=== PATIENT | female | born 1960 | race American Indian/Alaskan Native ===

== ENCOUNTER 2017-03-29 22:38 | Observation (INO) | payer SELFPAY ==
[~2017-03-29] VITALS: Ht 170.2 cm; Wt 103.1 kg
[2017-03-29] MEDS ORDERED: MORPHINE SULFATE 2 MG/ML DISP.SYRIN. IV/SQ PRN (23:00)
[2017-03-29 23:07] LABS: BASO % 0 % (0-3); EOS % 2 % (0-3); HEMATOCRIT 41.9 % (36.0-47.0); HEMOGLOBIN 14.4 g/dL (12.0-15.5); LYMPH # 3.8 x10^3/uL (1.0-4.8); LYMPH % 30 % (24-48); MEAN CORPUSCULAR HEMOGLOBIN 33 pg (25-35); MEAN CORPUSCULAR HGB CONC 34 g/dL (31-37); MEAN CORPUSCULAR VOLUME 95 fL (79-100); MONO % 8 % (0-9); NEUT % 60 % (31-73); PLATELET COUNT 299 x10^3/uL (140-400); RED BLOOD COUNT 4.43 x10^6/uL (3.50-5.40); WHITE BLOOD COUNT 12.9 x10^3/uL (4.0-11.0)
--- NOTE | 2017-03-29 23:09 | PHYS DOC ---
Past Medical History Past Medical History: Diabetes-Type II, High Cholesterol, Hypertension Past Medical History Ventral Hernia Past Surgical History: Hysterectomy, Other Additional Past Surgical Histo: rectal and bladder correction Smoking: Cigarettes Alcohol Use: None Drug Use: None Adult General Chief Complaint Chief Complaint: CHEST PAIN HPI HPI Patient is a 56 year old female who presents with chest pain and L shoulder scapular pain. Hx of "years' of pain L shoulder / scapula but over past 3 weeks worse with increase in episodes, change in pain to feeling of "someone sitting on chest" and worse with exertion. Current pain now 5/10 and became worse on way to ER. Associated with Nausea and diaphoresis and shortness of air. Pt denies abdominal pain Review of Systems Review of Systems Constitutional: Denies fever or chills Eyes: Denies change in visual acuity, redness, or eye pain HENT: Denies nasal congestion or sore throat Respiratory: Denies cough but does complain of shortness of air Cardiovascular: substernal chest pressure, dyspnea on excertion GI: Denies abdominal pain, nausea, vomiting, bloody stools or diarrhea : Denies dysuria or hematuria Musculoskeletal:some scapular and L shoulder pain Neurologic: Denies headache, focal weakness or sensory changes Endocrine: Denies polyuria or polydipsia Current Medications Current Medications Current Medications Medications (Trade) Dose Ordered Sig/Maurilio Start Time Stop Time Status Last Admin Dose Admin Info (Do NOT chart on this entry -- for MONITORING) 1 each PRN DAILY PRN 03/30/17 01:15 04/01/17 01:14 Morphine Sulfate 2 mg PRN Q15MIN PRN 03/29/17 23:00 03/30/17 11:10 DC 03/29/17 23:08 2 MG Ondansetron HCl (Zofran) 4 mg 1X ONCE 03/29/17 23:30 03/29/17 23:31 DC 03/29/17 23:08 4 MG Sodium Chloride 1,000 ml @ 1,000 mls/hr Q1H 03/29/17 23:30 03/30/17 00:29 DC 03/29/17 23:08 1,000 MLS/HR Allergies Allergies Allergies Coded Allergies Type Severity Reaction Last Updated Verified No Known Drug Allergies 12/30/13 No Physical Exam Physical Exam Constitutional: Well developed, well nourished, no acute distress, non-toxic appearance. HENT: Normocephalic, atraumatic, bilateral external ears normal, oropharynx moist, no oral exudates, nose normal. ] Eyes: PERRLA, EOMI, conjunctiva normal, no discharge. Neck: Normal range of motion, no tenderness, supple, no stridor., no JVD Cardiovascular:Heart rate regular rhythm, no murmur Lungs & Thorax: Bilateral breath sounds clear to auscultation ,no tenderness to palpation Abdomen: Bowel sounds normal, soft, mild epigastric tenderness to palpation, no masses, no pulsatile masses. Skin: Warm, dry, no erythema Back: No tenderness, no CVA tenderness. Extremities: No tenderness, no cyanosis, no clubbing, ROM intact, no edema. Neurologic: Alert and oriented X 3, normal motor function, normal sensory function, no focal deficits noted. Psychologic: Affect normal, judgement normal, mood normal BACK-- atraumatic, minimal tender over thorasic paraspinal area and L scapular area L shoulder no swelling, mild tender to palpation, neurovascular intact Current Patient Data Vital Signs Vital Signs Date Time Temp Pulse Resp B/P (MAP) Pulse Ox O2 Delivery O2 Flow Rate FiO2 03/30/17 00:45 68 25 101/55 (70) 94 Room Air 03/29/17 22:45 98.7 98.7 Lab Values Laboratory Tests Test 03/29/17 22:45 03/29/17 23:04 White Blood Count 12.9 x10^3/uL (4.0-11.0) H Red Blood Count 4.43 x10^6/uL (3.50-5.40) Hemoglobin 14.4 g/dL (12.0-15.5) Hematocrit 41.9 % (36.0-47.0) Mean Corpuscular Volume 95 fL (79-100) Mean Corpuscular Hemoglobin 33 pg (25-35) Mean Corpuscular Hemoglobin Concent 34 g/dL (31-37) Red Cell Distribution Width 13.0 % (11.5-14.5) Platelet Count 299 x10^3/uL (140-400) Neutrophils (%) (Auto) 60 % (31-73) Lymphocytes (%) (Auto) 30 % (24-48) Monocytes (%) (Auto) 8 % (0-9) Eosinophils (%) (Auto) 2 % (0-3) Basophils (%) (Auto) 0 % (0-3) Neutrophils # (Auto) 7.8 x10^3uL (1.8-7.7) H Lymphocytes # (Auto) 3.8 x10^3/uL (1.0-4.8) Monocytes # (Auto) 1.0 x10^3/uL (0.0-1.1) Eosinophils # (Auto) 0.3 x10^3/uL (0.0-0.7) Basophils # (Auto) 0.0 x10^3/uL (0.0-0.2) Prothrombin Time 13.4 SEC (11.7-14.0) Prothrombin Time INR 1.1 (0.8-1.1) D-Dimer (Avril) 0.48 ug/mlFEU (0.00-0.50) Sodium Level 143 mmol/L (136-145) Potassium Level 3.4 mmol/L (3.5-5.1) L Chloride Level 105 mmol/L (98-107) Carbon Dioxide Level 25 mmol/L (21-32) Anion Gap 13 (6-14) Blood Urea Nitrogen 16 mg/dL (7-20) Creatinine 0.9 mg/dL (0.6-1.0) Estimated GFR (Cockcroft-Gault) 64.5 Glucose Level 165 mg/dL (70-99) H Calcium Level 9.3 mg/dL (8.5-10.1) Magnesium Level 2.1 mg/dL (1.8-2.4) Total Bilirubin 0.3 mg/dL (0.2-1.0) Direct Bilirubin < 0.1 mg/dL (0.0-0.2) Aspartate Amino Transferase (AST) 21 U/L (15-37) Alanine Aminotransferase (ALT) 28 U/L (14-59) Alkaline Phosphatase 99 U/L (46-116) Creatine Kinase 280 U/L (26-192) H Creatine Kinase MB (Mass) 2.9 ng/mL (0.0-3.6) Creatine Kinase MB Relative Index 1.0 % (0-4) Troponin I Quantitative < 0.017 ng/mL (0.000-0.055) CH-Aja-J-Type Natriuretic Peptide 87 pg/mL (0-124) Total Protein 8.0 g/dL (6.4-8.2) Albumin 4.1 g/dL (3.4-5.0) Lipase 88 U/L (73-393) Urine Collection Type Unknown Urine Color Christa Urine Clarity Cloudy Urine pH 5.5 Urine Specific [place] >=1.030 Urine Protein 30 mg/dL (NEG-TRACE) Urine Glucose (UA) Negative mg/dL (NEG) Urine Ketones (Stick) Trace mg/dL (NEG) Urine Blood Negative (NEG) Urine Nitrite Negative (NEG) Urine Bilirubin Small (NEG) Urine Urobilinogen Dipstick 1.0 mg/dL (0.2 mg/dL) Urine Leukocyte Esterase Small (NEG) Urine RBC Occ /HPF (0-2) Urine WBC 1-4 /HPF (0-4) Urine Squamous Epithelial Cells Mod /LPF Urine Bacteria Mod /HPF (0-FEW) Urine Hyaline Casts Few /HPF Urine Mucus Mod /LPF Laboratory Tests 03/29/17 22:45 Laboratory Tests 03/29/17 22:45 EKG EKG EKG-Sinus rhythm with nonspecific QRS abnormalities in anteriolateral leads, no STEMI[] Interpretation Time: 2244 Radiology/Procedures Radiology/Procedures PATIENT: DEAN HERNANDEZ ACCOUNT: [id number] : 1960 LOCATION: [facility]TH AGE: 56 SEX: F EXAM STATUS: ADM IN ORD. PHYSICIAN: CHRISTINA ROSAS MD REASON: chest pain PROCEDURE: PORTABLE CHEST 1V Indication chest pain. A single view of the chest was obtained and is compared to an examination 12/30/2013. The heart and pulmonary vessels appear normal. The lungs are clear. There has not been a significant change relative to the previous exam. IMPRESSION: No acute or focal process is seen in the chest DICTATED and SIGNED BY: SHIRAZ URIARTE MD DATE: 03/30/17 0803 CC: CHRISTINA ROSAS MD; UNKNOWN PCP NAME; JASON WESLEY MD ~ PATIENT: DEAN HERNANDEZ ACCOUNT: [id number] : 1960 LOCATION: 2 SOUTH AGE: 56 SEX: F EXAM STATUS: ADM IN ORD. PHYSICIAN: CHRISTINA ROSAS MD REASON: chest/back pain r/o dissection/PE PROCEDURE: CT ANGIOGRAPHY CHEST RS Compliance Statement: One or more of the following individualized dose reduction techniques were utilized for this examination: 1. Automated exposure control 2. Adjustment of the mA and/or kV according to patient size 3. Use of iterative reconstruction technique CT CHEST WITH CONTRAST, PULMONARY ANGIOGRAM History: chest pain, back pain x 3 years...soa; Comparison: None. Technique: Helical CT of the chest was performed after the administration of 75 cc Omnipaque 300 intravenous contrast according to PE protocol. Axial and coronal reconstructions were obtained. 3-D MIP images were constructed to better evaluate the pulmonary arteries. Findings: Pulmonary arteries are adequately opacified. There is no evidence of pulmonary embolism. No thoracic aortic dissection. There is a large calcification at the origin of the right subclavian artery. Right vertebral artery is not definitely identified. There is no adenopathy in the chest. There is three-vessel coronary artery disease. Cardiac size normal, no pericardial effusion. There is no pleural effusion. Central airways are patent. Moderate bilateral dependent atelectasis. Small right Bochdalek hernia. Fatty infiltration of the liver. Atherosclerotic abdominal aorta, ectasia diameter up to 2.6 cm. Abdominal aorta is incompletely imaged. No compression fracture in the thoracic spine. IMPRESSION: 1. There is no CT evidence of pulmonary embolus. 2. Moderate bilateral dependent atelectasis. 3. Fatty infiltration of the liver. Electronically signed by: Sosa Karimi MD (03/30/2017 1:49 AM) [facility] DICTATED and SIGNED BY: SOSA KARIMI MD DATE: 03/30/17 0142 CC: CHRISTINA ROSAS MD; UNKNOWN PCP NAME; JASON WESLEY MD ~ [] Impressions: Impression----Chest pain with cardiac risk factors and mod/high suspicion of ACS Plan--admit Discussed with Dr. Wesley who accepted pt for admission Course & Med Decision Making Course & Med Decision Making Pertinent Labs and Imaging studies reviewed. (See chart for details) [] Dragon Disclaimer Dragon Disclaimer This electronic medical record was generated, in whole or in part, using a voice recognition dictation system. Departure Departure Disposition: 09 ADMITTED INPATIENT Admitting Physician: Brianna Wesley Condition: STABLE Referrals: NON,STAFF (PCP) Scripts Simvastatin (SIMVASTATIN) 40 Mg Tablet 40 MG PO QHS for 30 Days, #30 TAB Prov: DAMIEN BENEDICT MD 03/30/17 Aspirin (ASPIR 81) 81 Mg Tablet.dr 81 MG PO DAILY for 30 Days, #30 TAB Prov: DAMIEN BENEDICT MD 03/30/17 CHRISTINA ROSAS MD Mar 29, 2017 23:09
[2017-03-29 23:14] LABS: BILIRUBIN,URINE SMALL (NEG); GLUCOSE,URINE NEGATIVE (NEG); NITRITE,URINE NEGATIVE (NEG); PH,URINE 5.5; PROTEIN,URINE 30 mg/dL (NEG-TRACE)
[2017-03-29 23:16] LABS: INR 1.1 (0.8-1.1); PROTHROMBIN TIME PATIENT 13.4 SEC (11.7-14.0)
[2017-03-29 23:18] LABS: BACTERIA,URINE MOD /HPF (0-FEW); RBC,URINE OCC /HPF (0-2); SQUAMOUS EPITHELIAL CELL,UR MOD /LPF
[2017-03-29 23:18] LABS: ANION GAP 13 (6-14); BLOOD UREA NITROGEN 16 mg/dL (7-20); CALCIUM 9.3 mg/dL (8.5-10.1); CARBON DIOXIDE 25 mmol/L (21-32); CHLORIDE 105 mmol/L (98-107); CREATININE 0.9 mg/dL (0.6-1.0); GFR 64.5; GLUCOSE 165 mg/dL (70-99); POTASSIUM 3.4 mmol/L (3.5-5.1); SODIUM 143 mmol/L (136-145)
[2017-03-29 23:24] LABS: ALBUMIN 4.1 g/dL (3.4-5.0); ALK PHOS 99 U/L (46-116); ALT (SGPT) 28 U/L (14-59); AST (SGOT) 21 U/L (15-37); DIRECT BILIRUBIN < 0.1 mg/dL (0.0-0.2); MAGNESIUM 2.1 mg/dL (1.8-2.4); TOTAL BILIRUBIN 0.3 mg/dL (0.2-1.0)
[2017-03-29] MEDS ORDERED: ONDANSETRON PF 4 MG/2 ML VIAL. IV ONE (23:30)
[2017-03-29] MEDS ORDERED: IV NORMAL SALINE 1000ML BAG 1,000 ML IV SCH (23:30)
[2017-03-29 23:31] LABS: CKMB MASS 2.9 ng/mL (0.0-3.6)
[2017-03-30] MEDS ORDERED: CONTRAST GIVEN MC PRN (01:15)
[2017-03-30] MEDS ORDERED: IOHEXOL 300 MG/ML 75 ML VIAL IV ONE (01:30)
[2017-03-30] MEDS ORDERED: ACETAMINOPHEN 325 MG TABLET. PO PRN ×2 (01:30→09:45)
[2017-03-30] MEDS ORDERED: ONDANSETRON PF 4 MG/2 ML VIAL. IV PRN ×2 (01:30→09:45)
--- NOTE | 2017-03-30 01:53 | RAD ---
PQRS Compliance Statement: One or more of the following individualized dose reduction techniques were utilized for this examination: 1. Automated exposure control 2. Adjustment of the mA and/or kV according to patient size 3. Use of iterative reconstruction technique CT CHEST WITH CONTRAST, PULMONARY ANGIOGRAM History: chest pain, back pain x 3 years...soa; Comparison: None. Technique: Helical CT of the chest was performed after the administration of 75 cc Omnipaque 300 intravenous contrast according to PE protocol. Axial and coronal reconstructions were obtained. 3-D MIP images were constructed to better evaluate the pulmonary arteries. Findings: Pulmonary arteries are adequately opacified. There is no evidence of pulmonary embolism. No thoracic aortic dissection. There is a large calcification at the origin of the right subclavian artery. Right vertebral artery is not definitely identified. There is no adenopathy in the chest. There is three-vessel coronary artery disease. Cardiac size normal, no pericardial effusion. There is no pleural effusion. Central airways are patent. Moderate bilateral dependent atelectasis. Small right Bochdalek hernia. Fatty infiltration of the liver. Atherosclerotic abdominal aorta, ectasia diameter up to 2.6 cm. Abdominal aorta is incompletely imaged. No compression fracture in the thoracic spine. IMPRESSION: 1. There is no CT evidence of pulmonary embolus. 2. Moderate bilateral dependent atelectasis. 3. Fatty infiltration of the liver. Electronically signed by: Tristian Karimi MD (03/30/2017 1:49 AM) [facility]
[2017-03-30 02:15] VITALS: BP 121/88
[2017-03-30] MEDS ORDERED: FLUO40CA9 PO (03:57)
[2017-03-30] MEDS ORDERED: NAPR375T3 PO (03:57)
[2017-03-30] MEDS ORDERED: CYCL10TA2 PO (03:57)
--- NOTE | 2017-03-30 06:58 | EKG ---
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
[2017-03-30 07:00] VITALS: BP 130/84
--- NOTE | 2017-03-30 08:07 | RAD ---
Indication chest pain. A single view of the chest was obtained and is compared to an examination 12/30/2013. The heart and pulmonary vessels appear normal. The lungs are clear. There has not been a significant change relative to the previous exam. IMPRESSION: No acute or focal process is seen in the chest
--- NOTE | 2017-03-30 09:15 | PDOC2 ---
[employer]Z [employer] 03/30/17 0915: CARDIAC CONSULT DATE OF CONSULT Date of Consult DATE: 03/30/17 TIME: 09:12 REASON FOR CONSULT Reason for Consult: Chest pain REFERRING PHYSICIAN Referring Physician: Pantera SOURCE Source: Chart review, Patient HISTORY OF PRESENT ILLNESS HISTORY OF PRESENT ILLNESS This is a pleasant 56 yo female admitted for complains of chest pain. Reports of no recent falls, injury, or past VTE, CAD. Last night while at rest she started having cramp to her left arm that went to her shoulder then to her left chest then to her her right chest. This then transition to some mid chest heaviness. Denies any associated BARROSO, nausea, diaphoresis, palpitations, or dizziness. Her mid chest discomfort is reproducible with palpation as well as left shoulder ROM. She does have anxiety issues but she has not been taking her prozac. She sees a PCP at [facility] and was prescribed metformin and 1 BP med and cholesterol med as well but has stopped taking these. And if she does take these she takes it intermittently. Denies any weakness or fatigue, no recent heavy lifting or instant strenuous activity. Denies any heartburn. PAST MEDICAL HISTORY Cardiovascular: HTN, Hyperlipidemia Pulmonary: No pertinent hx CENTRAL NERVOUS SYSTEM: Other (Concussion) GI: No pertinent hx Heme/Onc: No pertinent hx Hepatobiliary: No pertinent hx Psych: Anxiety, Depression Musculoskeletal: Osteoarthritis Rheumatologic: No pertinent hx Infectious disease: No pertinent hx ENT: No pertinent hx Renal/: UTI, Other (nephrolithiasis) Endocrine: Diabetes (2) Dermatology: No pertinent hx PAST SURGICAL HISTORY Past Surgical History: Hysterectomy, Other (rectal surgery) FAMILY HISTORY Family History: Other (son has coarctation of the aorta and had surgery at 8 yo ) SOCIAL HISTORY Smoke: <1 pack per day (>40 yrs) ALCOHOL: none Drugs: Marijuana Lives: with Family (son) CURRENT MEDICATIONS CURRENT MEDICATIONS Current Medications Medications (Trade) Dose Ordered Sig/Maurilio Route PRN Reason Start Time Stop Time Status Last Admin Dose Admin Morphine Sulfate 2 mg PRN Q15MIN PRN IV/SQ PAIN GREATER THAN 3/10 03/29/17 23:00 03/30/17 22:59 03/29/17 23:08 Sodium Chloride 1,000 ml @ 1,000 mls/hr Q1H IV 03/29/17 23:30 03/30/17 00:29 DC 03/29/17 23:08 Ondansetron HCl (Zofran) 4 mg 1X ONCE IV 03/29/17 23:30 03/29/17 23:31 DC 03/29/17 23:08 Iohexol (Omnipaque 300 Mg/ml) 75 ml 1X ONCE IV 03/30/17 01:30 03/30/17 01:31 DC 03/30/17 01:34 ALLERGIES ALLERGIES: Coded Allergies: No Known Drug Allergies (Unverified , 12/30/13) ROS Review of System 14 point ROS evaluated with pertinent positives noted per HPI PHYSICAL EXAM General: Alert, Oriented X3, Cooperative, No acute distress HEENT: Atraumatic, Mucous membr. moist/pink Lungs: Clear to auscultation, Normal air movement Heart: Regular rate (SR), Normal S1, Normal S2, Other (2/6 systolic murmur to LLS border) Abdomen: Soft, No tenderness Extremities: No cyanosis, No edema Skin: No breakdown, No significant lesion Neuro: Normal speech, Sensation intact Psych/Mental Status: Mental status NL, Mood NL MUSCULOSKELETAL: Osteoarthritic changes both hands VITALS VITALS Vital Signs Date Time Temp Pulse Resp B/P (MAP) Pulse Ox O2 Delivery O2 Flow Rate FiO2 03/30/17 08:10 Room Air 03/30/17 07:00 98.1 76 20 130/84 (99) 96 98.1 LABS Lab: Laboratory Tests Test 03/29/17 22:45 03/29/17 23:04 03/30/17 05:00 White Blood Count 12.9 x10^3/uL (4.0-11.0) Red Blood Count 4.43 x10^6/uL (3.50-5.40) Hemoglobin 14.4 g/dL (12.0-15.5) Hematocrit 41.9 % (36.0-47.0) Mean Corpuscular Volume 95 fL (79-100) Mean Corpuscular Hemoglobin 33 pg (25-35) Mean Corpuscular Hemoglobin Concent 34 g/dL (31-37) Red Cell Distribution Width 13.0 % (11.5-14.5) Platelet Count 299 x10^3/uL (140-400) Neutrophils (%) (Auto) 60 % (31-73) Lymphocytes (%) (Auto) 30 % (24-48) Monocytes (%) (Auto) 8 % (0-9) Eosinophils (%) (Auto) 2 % (0-3) Basophils (%) (Auto) 0 % (0-3) Neutrophils # (Auto) 7.8 x10^3uL (1.8-7.7) Lymphocytes # (Auto) 3.8 x10^3/uL (1.0-4.8) Monocytes # (Auto) 1.0 x10^3/uL (0.0-1.1) Eosinophils # (Auto) 0.3 x10^3/uL (0.0-0.7) Basophils # (Auto) 0.0 x10^3/uL (0.0-0.2) Prothrombin Time 13.4 SEC (11.7-14.0) Prothromb Time International Ratio 1.1 (0.8-1.1) D-Dimer (Avril) 0.48 ug/mlFEU (0.00-0.50) Sodium Level 143 mmol/L (136-145) Potassium Level 3.4 mmol/L (3.5-5.1) Chloride Level 105 mmol/L (98-107) Carbon Dioxide Level 25 mmol/L (21-32) Anion Gap 13 (6-14) Blood Urea Nitrogen 16 mg/dL (7-20) Creatinine 0.9 mg/dL (0.6-1.0) Estimated GFR (Cockcroft-Gault) 64.5 Glucose Level 165 mg/dL (70-99) Calcium Level 9.3 mg/dL (8.5-10.1) Magnesium Level 2.1 mg/dL (1.8-2.4) Total Bilirubin 0.3 mg/dL (0.2-1.0) Direct Bilirubin < 0.1 mg/dL (0.0-0.2) Aspartate Amino Transf (AST/SGOT) 21 U/L (15-37) Alanine Aminotransferase (ALT/SGPT) 28 U/L (14-59) Alkaline Phosphatase 99 U/L (46-116) Creatine Kinase 280 U/L (26-192) Creatine Kinase MB (Mass) 2.9 ng/mL (0.0-3.6) Creatine Kinase MB Relative Index 1.0 % (0-4) Troponin I Quantitative < 0.017 ng/mL (0.000-0.055) < 0.017 ng/mL (0.000-0.055) ME-Vks-P-Type Natriuretic Peptide 87 pg/mL (0-124) Total Protein 8.0 g/dL (6.4-8.2) Albumin 4.1 g/dL (3.4-5.0) Lipase 88 U/L (73-393) Urine Collection Type Unknown Urine Color Christa Urine Clarity Cloudy Urine pH 5.5 Urine Specific [place] >=1.030 Urine Protein 30 mg/dL (NEG-TRACE) Urine Glucose (UA) Negative mg/dL (NEG) Urine Ketones (Stick) Trace mg/dL (NEG) Urine Blood Negative (NEG) Urine Nitrite Negative (NEG) Urine Bilirubin Small (NEG) Urine Urobilinogen Dipstick 1.0 mg/dL (0.2 mg/dL) Urine Leukocyte Esterase Small (NEG) Urine RBC Occ /HPF (0-2) Urine WBC 1-4 /HPF (0-4) Urine Squamous Epithelial Cells Mod /LPF Urine Bacteria Mod /HPF (0-FEW) Urine Hyaline Casts Few /HPF Urine Mucus Mod /LPF ASSESSMENT/PLAN ASSESSMENT/PLAN 1. Atypical chest pain: doubt ACS. No further recurrence. Suspect MSK 2. HTN: controlled 3. DM2/HLP 4. Tobaccoism 5. Marijuana use 6. Noncompliance. has been started on metformin, BP med, and cholesterold med as an outpt but has stopped using as well as her prozac Recommendations 1. TTE today if unremarkable then may DC and follow up with [facility] clinic 2. Smoking and marijuana cessation and discussed treatment compliance 3. No antiHTN needed at this time. Defer to outpt PCP 4. Lipid panel and TSH. 5. Start on ECASA 81 mg for primary prevention Problems: JULIA YO MD 03/30/17 1632: CARDIAC CONSULT ALLERGIES ALLERGIES: Coded Allergies: No Known Drug Allergies (Unverified , 12/30/13) ASSESSMENT/PLAN ASSESSMENT/PLAN Patient seen and examined. Agree with [employer]ER STRAP's assessment and plan Chest pain with atypical features and most probably musculoskeletal. 2-D echo showed normal LV systolic function without any wall motion abnormalities. No further cardiac workup is indicated at this time. Thank you for your consultation. Problems: TAZ [employer] Mar 30, 2017 09:15 JULIA YO MD Mar 30, 2017 16:32
--- NOTE | 2017-03-30 09:38 | PDOC1 ---
History and Physical Date of Admission Date of Admission Date of service: 03/30/2017 Chief complaint: Chest pain History of present illness: A 56-year-old female patient with prior history of hypertension present to the ER with complaints of chest pain located across the left side of the chest for 1 day. Pain was worse with the shoulder movement especially anterior and posterior movements, patient had shoulder problems for nearly 5 years however yesterday she could not able to tolerate. given her comorbid conditions she was admitted to the hospital for ACS rule out. At the time of examination patient's pain has been controlled ,denies any nausea vomiting or sweating. She did have some risk factors such as smoking and the distant family history. Past Medical History Past Medical History PAST MEDICAL HISTORY Cardiovascular: HTN, Hyperlipidemia Pulmonary: No pertinent hx CENTRAL NERVOUS SYSTEM: Other (Concussion) GI: No pertinent hx Heme/Onc: No pertinent hx Hepatobiliary: No pertinent hx Psych: Anxiety, Depression Musculoskeletal: Osteoarthritis Rheumatologic: No pertinent hx Infectious disease: No pertinent hx ENT: No pertinent hx Renal/: UTI, Other (nephrolithiasis) Endocrine: Diabetes (2) Dermatology: No pertinent hx PAST SURGICAL HISTORY Past Surgical History: Hysterectomy, Other (rectal surgery) FAMILY HISTORY Family History: Other (son has coarctation of the aorta and had surgery at 8 yo ) SOCIAL HISTORY Smoke: <1 pack per day (>40 yrs) ALCOHOL: none Drugs: Marijuana Lives: with Family (son) Current Problem List Problem List Problems Medical Problems: (1) Chest pain Status: Acute Current Medications Current Medications Current Medications Medications (Trade) Dose Ordered Sig/Maurilio Start Time Stop Time Status Last Admin Dose Admin Acetaminophen (Tylenol) 650 mg PRN Q4HRS PRN 03/30/17 01:30 03/31/17 01:29 Info (Do NOT chart on this entry -- for MONITORING) 1 each PRN DAILY PRN 03/30/17 01:15 04/01/17 01:14 Iohexol (Omnipaque 300 Mg/ml) 75 ml 1X ONCE 03/30/17 01:30 03/30/17 01:31 DC 03/30/17 01:34 75 ML Morphine Sulfate 2 mg PRN Q15MIN PRN 03/29/17 23:00 03/30/17 22:59 03/29/17 23:08 2 MG Ondansetron HCl (Zofran) 4 mg PRN Q8HRS PRN 03/30/17 01:30 03/31/17 01:29 Sodium Chloride 1,000 ml @ 1,000 mls/hr Q1H 03/29/17 23:30 03/30/17 00:29 DC 03/29/17 23:08 1,000 MLS/HR Allergies Allergies Allergies Coded Allergies Type Severity Reaction Last Updated Verified No Known Drug Allergies 12/30/13 No ROS Review of System CONSTITUTIONAL: No fever or chills EYES: No recent changes SKIN: No rash or itching CARDIOVASCULAR: No chest pain, syncope, palpitations, or edema, left shoulder pain worse with rotation RESPIRATORY: No SOB or cough GASTROINTESTINAL: No nausea, vomiting or abdominal pain NEUROLOGICAL: No headaches or weakness ENDOCRINE: No cold or heat intolerance GENITOURINARY: No urgency or frequency of urination MUSCULOSKELETAL: No back pain or joint pain LYMPHATICS: No enlarged lymph nodes PSYCHIATRIC: No anxiety or depression Physical Exam Physical Exam GEN.: No apparent distress. Alert and oriented. HEENT: Head is normocephalic, atraumatic NECK: Supple. No JVD LUNGS: Clear to auscultation. Normal air flow HEART: RRR, S1, S2 present. Peripheral pulses intact ABDOMEN: Soft, nontender. Positive bowel sounds. EXTREMITIES: Left shoulder pain with tenderness across the chest worse with the anterior and posterior moments. NEUROLOGIC: Normal speech, normal tone PSYCHIATRIC: Normal affect, normal mood. SKIN: No ulcerations Vitals Vitals Vital Signs Date Time Temp Pulse Resp B/P (MAP) Pulse Ox O2 Delivery O2 Flow Rate FiO2 03/30/17 08:10 Room Air 03/30/17 07:00 98.1 76 20 130/84 (99) 96 98.1 Labs Labs Laboratory Tests Test 03/29/17 22:45 03/29/17 23:04 03/30/17 05:00 White Blood Count 12.9 x10^3/uL (4.0-11.0) Red Blood Count 4.43 x10^6/uL (3.50-5.40) Hemoglobin 14.4 g/dL (12.0-15.5) Hematocrit 41.9 % (36.0-47.0) Mean Corpuscular Volume 95 fL (79-100) Mean Corpuscular Hemoglobin 33 pg (25-35) Mean Corpuscular Hemoglobin Concent 34 g/dL (31-37) Red Cell Distribution Width 13.0 % (11.5-14.5) Platelet Count 299 x10^3/uL (140-400) Neutrophils (%) (Auto) 60 % (31-73) Lymphocytes (%) (Auto) 30 % (24-48) Monocytes (%) (Auto) 8 % (0-9) Eosinophils (%) (Auto) 2 % (0-3) Basophils (%) (Auto) 0 % (0-3) Neutrophils # (Auto) 7.8 x10^3uL (1.8-7.7) Lymphocytes # (Auto) 3.8 x10^3/uL (1.0-4.8) Monocytes # (Auto) 1.0 x10^3/uL (0.0-1.1) Eosinophils # (Auto) 0.3 x10^3/uL (0.0-0.7) Basophils # (Auto) 0.0 x10^3/uL (0.0-0.2) Prothrombin Time 13.4 SEC (11.7-14.0) Prothromb Time International Ratio 1.1 (0.8-1.1) D-Dimer (Avril) 0.48 ug/mlFEU (0.00-0.50) Sodium Level 143 mmol/L (136-145) Potassium Level 3.4 mmol/L (3.5-5.1) Chloride Level 105 mmol/L (98-107) Carbon Dioxide Level 25 mmol/L (21-32) Anion Gap 13 (6-14) Blood Urea Nitrogen 16 mg/dL (7-20) Creatinine 0.9 mg/dL (0.6-1.0) Estimated GFR (Cockcroft-Gault) 64.5 Glucose Level 165 mg/dL (70-99) Calcium Level 9.3 mg/dL (8.5-10.1) Magnesium Level 2.1 mg/dL (1.8-2.4) Total Bilirubin 0.3 mg/dL (0.2-1.0) Direct Bilirubin < 0.1 mg/dL (0.0-0.2) Aspartate Amino Transf (AST/SGOT) 21 U/L (15-37) Alanine Aminotransferase (ALT/SGPT) 28 U/L (14-59) Alkaline Phosphatase 99 U/L (46-116) Creatine Kinase 280 U/L (26-192) Creatine Kinase MB (Mass) 2.9 ng/mL (0.0-3.6) Creatine Kinase MB Relative Index 1.0 % (0-4) Troponin I Quantitative < 0.017 ng/mL (0.000-0.055) < 0.017 ng/mL (0.000-0.055) RE-Drg-G-Type Natriuretic Peptide 87 pg/mL (0-124) Total Protein 8.0 g/dL (6.4-8.2) Albumin 4.1 g/dL (3.4-5.0) Lipase 88 U/L (73-393) Urine Collection Type Unknown Urine Color Christa Urine Clarity Cloudy Urine pH 5.5 Urine Specific Eakly >=1.030 Urine Protein 30 mg/dL (NEG-TRACE) Urine Glucose (UA) Negative mg/dL (NEG) Urine Ketones (Stick) Trace mg/dL (NEG) Urine Blood Negative (NEG) Urine Nitrite Negative (NEG) Urine Bilirubin Small (NEG) Urine Urobilinogen Dipstick 1.0 mg/dL (0.2 mg/dL) Urine Leukocyte Esterase Small (NEG) Urine RBC Occ /HPF (0-2) Urine WBC 1-4 /HPF (0-4) Urine Squamous Epithelial Cells Mod /LPF Urine Bacteria Mod /HPF (0-FEW) Urine Hyaline Casts Few /HPF Urine Mucus Mod /LPF Laboratory Tests Test 03/29/17 22:45 03/29/17 23:04 03/30/17 05:00 White Blood Count 12.9 x10^3/uL (4.0-11.0) Red Blood Count 4.43 x10^6/uL (3.50-5.40) Hemoglobin 14.4 g/dL (12.0-15.5) Hematocrit 41.9 % (36.0-47.0) Mean Corpuscular Volume 95 fL (79-100) Mean Corpuscular Hemoglobin 33 pg (25-35) Mean Corpuscular Hemoglobin Concent 34 g/dL (31-37) Red Cell Distribution Width 13.0 % (11.5-14.5) Platelet Count 299 x10^3/uL (140-400) Neutrophils (%) (Auto) 60 % (31-73) Lymphocytes (%) (Auto) 30 % (24-48) Monocytes (%) (Auto) 8 % (0-9) Eosinophils (%) (Auto) 2 % (0-3) Basophils (%) (Auto) 0 % (0-3) Neutrophils # (Auto) 7.8 x10^3uL (1.8-7.7) Lymphocytes # (Auto) 3.8 x10^3/uL (1.0-4.8) Monocytes # (Auto) 1.0 x10^3/uL (0.0-1.1) Eosinophils # (Auto) 0.3 x10^3/uL (0.0-0.7) Basophils # (Auto) 0.0 x10^3/uL (0.0-0.2) Prothrombin Time 13.4 SEC (11.7-14.0) Prothromb Time International Ratio 1.1 (0.8-1.1) D-Dimer (Avril) 0.48 ug/mlFEU (0.00-0.50) Sodium Level 143 mmol/L (136-145) Potassium Level 3.4 mmol/L (3.5-5.1) Chloride Level 105 mmol/L (98-107) Carbon Dioxide Level 25 mmol/L (21-32) Anion Gap 13 (6-14) Blood Urea Nitrogen 16 mg/dL (7-20) Creatinine 0.9 mg/dL (0.6-1.0) Estimated GFR (Cockcroft-Gault) 64.5 Glucose Level 165 mg/dL (70-99) Calcium Level 9.3 mg/dL (8.5-10.1) Magnesium Level 2.1 mg/dL (1.8-2.4) Total Bilirubin 0.3 mg/dL (0.2-1.0) Direct Bilirubin < 0.1 mg/dL (0.0-0.2) Aspartate Amino Transf (AST/SGOT) 21 U/L (15-37) Alanine Aminotransferase (ALT/SGPT) 28 U/L (14-59) Alkaline Phosphatase 99 U/L (46-116) Creatine Kinase 280 U/L (26-192) Creatine Kinase MB (Mass) 2.9 ng/mL (0.0-3.6) Creatine Kinase MB Relative Index 1.0 % (0-4) Troponin I Quantitative < 0.017 ng/mL (0.000-0.055) < 0.017 ng/mL (0.000-0.055) ZT-Isp-I-Type Natriuretic Peptide 87 pg/mL (0-124) Total Protein 8.0 g/dL (6.4-8.2) Albumin 4.1 g/dL (3.4-5.0) Lipase 88 U/L (73-393) Urine Collection Type Unknown Urine Color Christa Urine Clarity Cloudy Urine pH 5.5 Urine Specific Eakly >=1.030 Urine Protein 30 mg/dL (NEG-TRACE) Urine Glucose (UA) Negative mg/dL (NEG) Urine Ketones (Stick) Trace mg/dL (NEG) Urine Blood Negative (NEG) Urine Nitrite Negative (NEG) Urine Bilirubin Small (NEG) Urine Urobilinogen Dipstick 1.0 mg/dL (0.2 mg/dL) Urine Leukocyte Esterase Small (NEG) Urine RBC Occ /HPF (0-2) Urine WBC 1-4 /HPF (0-4) Urine Squamous Epithelial Cells Mod /LPF Urine Bacteria Mod /HPF (0-FEW) Urine Hyaline Casts Few /HPF Urine Mucus Mod /LPF VTE Prophylaxis Ordered VTE Prophylaxis Devices: Yes VTE Pharmacological Prophylaxi: Yes Assessment/Plan Assessment/Plan Chest pain atypical most likely musculoskeletal in nature Hyperlipidemia Obesity Nicotine use THC use Depression chronic stable Plan 3 sets of troponins were negative EKG personally reviewed ACS ruled out Cardiology consultation pending next Echocardiogram or stress test based on cardiology recommendations Start Lipitor Nicotine patch Outpatient follow-up with primary care doctor and physical medicine doctor Aspirin daily Discharge planning based on echo reports in the cardiology recommendations DAMIEN BENEDICT MD Mar 30, 2017 09:38
[2017-03-30] MEDS ORDERED: ALBUTEROL SULFATE 2.5 MG/3 ML NEBU. NEB PRN (09:45)
[2017-03-30] MEDS ORDERED: HYDROcodone/APAP 5/325MG 1 TAB TABLET PO PRN (09:45)
[2017-03-30] MEDS ORDERED: hydrALAZINE 20 MG/ML VIAL. IVP PRN (09:45)
[2017-03-30] MEDS ORDERED: POTASSIUM CHLORIDE 20 MEQ TABLET.ER. PO ONE (10:00)
[2017-03-30] MEDS ORDERED: ASPIRIN ENTERIC COATED 81 MG TABLET.DR. PO SCH (10:00)
[2017-03-30 10:16] LABS: CHOLESTEROL/HDL RATIO 8.8
[2017-03-30 11:00] VITALS: BP 135/102
[2017-03-30 15:00] VITALS: BP 127/92
[2017-03-30] MEDS ORDERED: ASPI-482 PO (15:07)
[2017-03-30] MEDS ORDERED: SIMV40TA3 PO (15:16)
--- NOTE | 2017-03-30 15:18 | PDOC3 ---
Discharge Summary* Date of Discharge: Mar 30, 2017 Admitting Diagnosis Problems Medical Problems: (1) Chest pain Status: Acute Problems: Final Diagnosis Chest pain atypical most likely musculoskeletal in nature Hyperlipidemia Obesity Nicotine use THC use Depression chronic stable Brief Hospital Course Ms. Funes is a 56 old [sex] who presented with [ ] Scheduled Cyclobenzaprine Hcl (Cyclobenzaprine Hcl), 1 TAB PO TID, (Reported) Fluoxetine Hcl (Prozac), 1 CAP PO BID, (Reported) Naproxen (Naproxen), 1 TAB PO BID, (Reported) Time Spent Total time spent with patient [] minutes for coordination of care, counseling, and education. DAMIEN BENEDICT MD Mar 30, 2017 15:17
--- NOTE | 2017-03-30 15:32 | CARD ---
APPROVED REPORT EXAM: Two-dimensional and M-mode echocardiogram with Doppler and color Doppler. Other Information Quality : Technically Limited Rhythm : NSRTechnically limited study due to smoking. INDICATION Chest Pain 2D DIMENSIONS RVDd2.1 (2.9-3.5cm)Left Atrium(2D)3.5 (1.6-4.0cm) IVSd1.0 (0.7-1.1cm)Aortic Root(2D)2.6 (2.0-3.7cm) LVDd5.2 (3.9-5.9cm)LVOT Diameter2.0 (1.8-2.4cm) PWd1.0 (0.7-1.1cm)LVDs2.8 (2.5-4.0cm) FS (%) 33.9 %SV98.6 ml LVEF(%)64.0 (>50%) Aortic Valve AoV Peak Shailesh.121.8cm/sAoV VTI27.3cm AO Peak GR.5.9mmHgLVOT Peak Shailesh.138.1cm/s LVOT VTI 31.55cmAO Mean GR.3mmHg MAGUE (VMAX)3.67fu7LLA (VTI)3.49cm2 Mitral Valve MV E Mntanhzs25.3cm/sMV DECEL PGOT252mh MV A Hxisrcym64.1cm/sMV VLX59ym E/A Ratio1.9MV A [id number] MVA (PHT)3.45cm2 TDI E/Lateral E'10.2E/Medial E'10.0 Pulmonary Vein S1 Sglflojd98.2cm/sD2 Zywlwose29.2cm/s LEFT VENTRICLE The left ventricle is normal size. There is normal left ventricular wall thickness. Left ventricle sy stolic function is normal. The Ejection Fraction is 60-65%. There is normal LV segmental wall motion. The left ventricular diastolic function and filling is normal for age. There is no ventricular septa l defect visualized. RIGHT VENTRICLE The right ventricle is normal size. The right ventricular systolic function is normal. ATRIA The left atrium size is normal. The right atrium size is normal. The interatrial septum is intact wit h no evidence for an atrial septal defect or patent foramen ovale as noted on 2-D or Doppler imaging. AORTIC VALVE The aortic valve is not well visualized. Doppler and Color Flow revealed no significant aortic regurg itation. There is no significant aortic valvular stenosis. MITRAL VALVE Not well visualized. There is no mitral valve stenosis. Doppler and Color Flow revealed no mitral coby ve regurgitation noted. TRICUSPID VALVE Not well visualized. Doppler and Color Flow revealed no tricuspid valve regurgitation noted. Unable t o estimate PA pressure. There is no tricuspid valve stenosis. PULMONIC VALVE The pulmonic valve is not well visualized. GREAT VESSELS The aortic root is normal in size. Normal pulmonary venous flow (Doppler). The IVC was not well visua lized but appears normal. PERICARDIAL EFFUSION There is no evidence of significant pericardial effusion. Critical Notification Critical Value: No <Conclusion> Left ventricle systolic function is normal. The Ejection Fraction is 60-65%. There is grossly normal LV segmental wall motion. Technically difficult study.
[2017-03-30] MEDS ORDERED: SIMVASTATIN 40 MG TABLET. PO SCH (21:00)
== END 2017-03-30 16:00 | disposition home or self-care (01) ==
LOC: ER 22:38 → 2 SOUTH 03-30 01:20
PROVIDERS: ADMIT Internal Medicine; ATTEND Internal Medicine
DX: R07.89 Other chest pain (principal); E78.5 Hyperlipidemia, unspecified; E66.9 Obesity, unspecified; F17.210 Nicotine dependence, cigarettes, uncomplicated; F12.90 Cannabis use, unspecified, uncomplicated; F32.9 Major depressive disorder, single episode, unspecified; I10 Essential (primary) hypertension; M19.90 Unspecified osteoarthritis, unspecified site; F41.9 Anxiety disorder, unspecified; E11.9 Type 2 diabetes mellitus without complications; E78.00 Pure hypercholesterolemia, unspecified; J98.11 Atelectasis; K76.0 Fatty (change of) liver, not elsewhere classified; Z87.442 Personal history of urinary calculi; Z90.710 Acquired absence of both cervix and uterus; Z91.19 Patient's noncompliance with other medical treatment and regimen
CPT/HCPCS: 36415; 71010; 71275; 80048; 80061; 80076; 81001; 82553; 83690; 83735; 83880; 84443; 84484; 85027; 85379; 85610; 93005; 93306; 96361; 96374; 96375; 99285; G0378; J2270; J2405; J7030; Q9967; G0379